=== PATIENT | female | born 1950 | race African-American/Black ===

== ENCOUNTER 2017-07-25 10:06 | Emergency (ER) | payer OTHER, MEDICARE ==
[~2017-07-25] VITALS: Ht 167.6 cm; Wt 80.0 kg
[2017-07-25] MEDS ORDERED: LOSA100T PO (10:29)
[2017-07-25] MEDS ORDERED: ASPI81CH PO (10:29)
[2017-07-25 10:30] VITALS: BP 137/70; PULSE 79; RESP 16; TEMP 97.8; O2SAT 98
[2017-07-25] MEDS ORDERED: SODIUM CHLORIDE 0.9% FLUSH 10 ML FLUSH IVF PRN (11:15)
[2017-07-25 11:21] VITALS: RESP 16; O2SAT 98
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
[2017-07-25] MEDS ORDERED: ACETAMINOPHEN 500 MG CPLT PO ONE (11:30)
[2017-07-25] MEDS ORDERED: TETANUS/DIPHTHERIA TOXOID ADULT 0.5 ML VIAL IM ONE (11:30)
[2017-07-25 12:00] VITALS: BP 128/83; PULSE 72; RESP 16; TEMP 97.9; O2SAT 99
[2017-07-25 12:00] LABS: AUTOMATED NEUTROPHIL # 3.6 TH/MM3 (1.8-7.7); BASOPHIL # 0.1 TH/MM3 (0-0.2); BASOPHIL % 0.8 % (0.0-2.0); EOSINOPHIL # 0.2 TH/MM3 (0-0.4); EOSINOPHIL % 2.8 % (0.0-4.0); HEMATOCRIT 39.4 % (35.0-46.0); HEMO FLAGS DIFF FINAL; LYMPH % 28.8 % (9.0-44.0); LYMPHOCYTE # 1.8 TH/MM3 (1.0-4.8); MEAN CORPUSCULAR HEMOGLOBIN 29.2 PG (27.0-34.0); MEAN CORPUSCULAR HGB CONC 33.1 % (32.0-36.0); MONO % 10.3 % (0.0-8.0); NEUT % 57.3 % (16.0-70.0); PLATELET COUNT 270 TH/MM3 (150-450); RED BLOOD COUNT 4.47 MIL/MM3 (4.00-5.30); RED CELL DISTRIBUTION WIDTH 13.4 % (11.6-17.2); WHITE BLOOD COUNT 6.2 TH/MM3 (4.0-11.0)
[2017-07-25 12:08] LABS: APTT (PATIENT) 25.1 SEC (24.3-30.1)
[2017-07-25] MEDS ORDERED: IOHEXOL 350 MG/ML 10 ML VIAL (for RAD DIAG) IVCONTRAST ONE (13:47)
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
[2017-07-25 14:33] VITALS: BP 151/85; PULSE 69; RESP 17; TEMP 97.8; O2SAT 99
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
[2017-07-25 15:10] VITALS: BP 136/78; TEMP 97.8
== END 2017-07-25 15:10 | disposition home or self-care (01) ==
LOC: NEPD 10:06
DX: S16.1XXA Strain of muscle, fascia and tendon at neck level, initial encounter (principal); M54.5 Low back pain; S60.811A Abrasion of right wrist, initial encounter; S60.411A Abrasion of left index finger, initial encounter; V49.50XA Passenger injured in collision with unspecified motor vehicles in traffic accident, initial encounter; Y92.411 Interstate highway as the place of occurrence of the external cause; Z23 Encounter for immunization
CPT/HCPCS: 70450; 71260; 72125; 74177; 80048; 85025; 85610; 85730; 90471; 90714; 99285; Q9967